=== PATIENT | female | born 1950 | race Caucasian/White ===

== ENCOUNTER 2018-05-30 15:55 | Observation (INO) | payer OTHER, MEDICAID ==
[~2018-05-30] VITALS: Ht 165.1 cm; Wt 72.7 kg
[2018-05-30 16:00] VITALS: Ht 165.1 cm; Wt 72.7 kg
--- NOTE | 2018-05-30 16:15 | NUR ---
EKG DONE BY ALLYSSA REED
--- NOTE | 2018-05-30 16:27 | NUR ---
MSE COMPLETED BY
--- NOTE | 2018-05-30 16:40 | NUR ---
NITRO PATCH APPLIED TO LEFT CHEST SEE EMAR
[2018-05-30 16:56] LABS: BASOPHIL % 0.2 % (0-2); PLATELET COUNT 136 x10^3mcL (130-400)
[2018-05-30 16:59] LABS: RED CELL DISTRIBUTION WIDTH 19.2 % (11.5-14.5)
[2018-05-30 17:10] LABS: CARBON DIOXIDE 25.8 mmol/L (21-32); CHLORIDE SERUM 102 mmol/L (98-107); CREATININE SERUM 0.6 mg/dL (0.6-1.0); GFR1 > 60 mL/min; GLUCOSE SERUM 119 mg/dL (74-106); POTASSIUM SERUM 3.4 mmol/L (3.5-5.1); SODIUM SERUM 134 mmol/L (136-145)
[2018-05-30 17:14] LABS: ALKALINE PHOSPHATASE 60 U/L (46-116); ALT/SGPT 24 U/L (14-59); AST/SGOT 17 U/L (15-37); TOTAL PROTEIN, SERUM 7.6 g/dL (6.4-8.2)
--- NOTE | 2018-05-30 18:18 | NUR ---
PT LYING COMFORTABLY IN BED. FAMILY MEMBER AT BEDSIDE. NO NEW ORDERS. WILL CONTINUE TO MONITOR.
[2018-05-30] MEDS ORDERED: METFORMIN HYDR500 M1 (18:58)
[2018-05-30] MEDS ORDERED: SIMVASTATIN (18:58)
[2018-05-30] MEDS ORDERED: LISINOPRIL2.5 MG (18:58)
[2018-05-30] MEDS ORDERED: SIMVASTATIN10 M1 (18:59)
--- NOTE | 2018-05-30 19:04 | NUR ---
REPORT GIVEN TO JESSICA AQUINO RESUMING CARE OF PT AT THIS TIME
--- NOTE | 2018-05-30 20:44 | NUR ---
PATIENT IS RESTING , DENIES ANY PAIN. REPORT WAS GIVEN TO ALVA. PATIENT TRANSPORTED TO ROOM 255B,
[2018-05-30 21:07] VITALS: BP 144/56
--- NOTE | 2018-05-30 21:10 | NUR ---
RECEIVED PT FROM ED VIA MAK. ORIENTED PT TO ROOM AND SURROUNDINGS. IV NOTED TO RH PATENT AND INTACT. TELE 27 PLACED ON PT READING NSR. INSTRUCTED PT ON THE USE OF CALL LIGHT FOR ASSISTANCE. ENDORSED PT TO PRIMARY NURSE KEVIN
--- NOTE | 2018-05-30 21:15 | NUR ---
RECEIVED PT FROM MILES MCKEON. PT AOX4. TELE #27, NSR. DENIES CP/PRESSURE. PULSES PALPABLE, NO EDEMA NOTED. LUNG SOUNDS CLEAR, ON RA. DENIES SOB/DIFFICULTY BREATHING. BOWEL SOUNDS ACTIVE. VOIDS FREELY. AMBULATORY. SKIN INTACT. IV TO R. HAND, INTACT AND PATENT. BED IN LOWEST POSITION. WILL CONTINUE TO MONITOR.
--- NOTE | 2018-05-31 00:20 | NUR ---
PT RESTING IN BED. RR EVEN AND UNLABORED. NO ACUTE DISTRESS NOTED. CALL LIGHT WITHIN REACH. BED IN LOWEST POSITION. WILL CONTINUE TO MONITOR.
--- NOTE | 2018-05-31 05:07 | NUR ---
DR. RADER NOTIFIED VIA [place] OF K 3.4.
[2018-05-31 05:10] VITALS: BP 124/49
--- NOTE | 2018-05-31 07:22 | NUR ---
REPORT TAKEN FROM WATER OPERATOR NURSE. PT RESTING COMFORTABLY AT THIS TIME, IN NO ACUTE DISTRESS. PT REPORTS LEFT SHOULDER PAIN AT THIS TIME. DECLINED PAIN MEDICATION AT THIS TIME. WILL CONTINUE WITH TREATMENT PALN.
[2018-05-31 08:08] LABS: BASOPHIL % 0.2 % (0-2); PLATELET COUNT 126 x10^3mcL (130-400); RED CELL DISTRIBUTION WIDTH 19.4 % (11.5-14.5)
[2018-05-31 08:12] LABS: CALCIUM 8.7 mg/dL (8.5-10.1); CARBON DIOXIDE 27.7 mmol/L (21-32); CHLORIDE SERUM 107 mmol/L (98-107); CREATININE SERUM 0.5 mg/dL (0.6-1.0); GFR1 > 60 mL/min; GLUCOSE SERUM 142 mg/dL (74-106); MAGNESIUM 1.9 mg/dL (1.8-2.4); POTASSIUM SERUM 3.4 mmol/L (3.5-5.1); SODIUM SERUM 143 mmol/L (136-145)
[2018-05-31 09:59] VITALS: BP 108/43
--- NOTE | 2018-05-31 10:39 | NUR ---
PT RESTING COMFORTABLY AT THIS TIME, IN NO ACUTE DISTRESS, FAMILY AT BEDSIDE. PT IS AMBULATORY WITH OUT ASSIST. PT TOLERATED MORNING TREATMENT WELL, WILL CONTINUE TO MONITOR.
[2018-05-31 13:00] VITALS: BP 132/46
[2018-05-31 16:15] VITALS: BP 125/53
--- NOTE | 2018-05-31 18:16 | NUR ---
PT A/O X 3 AT THIS TIME. RESTING COMFORTABLY IN BED. PT TOLERATED TREATMENT WELL DURING THE SHIFT. CN 1-12 WNL, PT DENIED HEADACHE. PT DENIED CHEST PAIN, ABD PAIN, N/V. PULSES WNL, SLIGHT EDEMA TO LEFT KNEE, BUT REPORTED MILD DISCOMFORT. PT REPORTED PAIN AT IV SITE, SITE FLUSHED AND WNL. BOWEL SOUNDS WNL, PT REPORTED BM TODAY. PT MADE AWARE OF TREATMENT PLAN FOR TONIGHT AND TOMORROW, VERBALIZED UNDERSTANDING. WILL CONTINUE TO MONITOR, AND HAND CARE OVER TO GROUP ART SUPERVISOR NURSE.
--- NOTE | 2018-05-31 18:51 | NUR ---
NURSING CO-SIGN THE DOCUMENTATION ENTERED BY THE RN ANIYAH HAS BEEN REVIEWED. REVIEWED/CO-SIGNED BY: Terrie Laughlin DOCUMENTATION DONE BY:SHAW PARMAR
--- NOTE | 2018-05-31 19:24 | NUR ---
RECEIVED PT FROM PREVIOUS SHIFT NURSE. PT AOX4. TELE #27, HR 62 SHOWING SR WITH BBB AND ELEVATED T WAVE. DENIES CP/PRESSURE. PULSES PALPABLE, NO EDEMA NOTED. LUNG SOUNDS CLEAR, ON RA. DENIES SOB/DIFFICULTY BREATHING. BOWEL SOUNDS ACTIVE. VOIDS FREELY. AMBULATORY. SKIN INTACT. IV TO R. HAND, INTACT AND PATENT. BED IN LOWEST POSITION. CALL LIGHT WITHIN REACH. WILL CONTINUE TO MONITOR.
[2018-05-31 21:14] VITALS: BP 117/43
--- NOTE | 2018-06-01 00:03 | NUR ---
PT RESTING IN BED. RR EVEN AND UNLABORED. NO ACUTE DISTRESS NOTED. CALL LIGHT WITHIN REACH. BED IN LOWEST POSITION. WILL CONTINUE TO MONITOR.
[2018-06-01 05:27] VITALS: BP 111/70
--- NOTE | 2018-06-01 07:15 | NUR ---
RCD REPORT FROM MILES BA. SHIFT ASSESSMENT PERFORMED AND DOCUMENTED. PATIENT AWAKE, ALERT, NO DISTRESS NOTED. DISCUSSED WITH ASSISTANCE OF MILES BA TO TRANSLATE CHIN[place], NEED FOR NO COFFEE AND LIGHT BREAKFAST IN PREPARATION FOR POSSIBLE STRESS TEST TODAY. PATIENT VERBALIZED UNDERSTAND OF ALL INSTRUCTIONS. PATIENT DENIES CHEST PAIN OR SHORTNESS OF BREATH. DENIES ANY OTHER PAIN. NO NEEDS AT THIS TIME. TELEL 27, SR WITH BBB, ELEVATED T WAVE, RATE IN 70s. WILL MONITOR.
[2018-06-01 07:55] VITALS: BP 131/44
--- NOTE | 2018-06-01 10:06 | NUR ---
MEDICATIONS GIVEN PER MAR EXCEPT METFORMIN HELD PRIOR TO NUCLEAR STRESS TEST PLANNED FOR 1300 TODAY. PATIENT ADVISED TO REFRAIN FROM EATING OR DRINKING AT THIS POINT IN PREPARATION FOR HER TEST. PATIENT VERBALIZED UNDERSTANDING OF INSTRUCTIONS. REPORTS NO NEEDS AT THIS TIME.
[2018-06-01 12:01] VITALS: BP 122/40
--- NOTE | 2018-06-01 13:10 | NUR ---
PATIENT PICKED UP BY NUCLEAR MEDICINE FOR STRESS TEST, TAKEN VIA WHEELCHAIR, NO DISTRESS NOTED.
--- NOTE | 2018-06-01 15:12 | NUR ---
PATIENT RETURNED TO UNIT FROM NUCLEAR MEDICINE, NO DISTRESS NOTED. PATIENT EDUCATED ON RADIOACTIVITY, KEEPING DISTANCE FROM FAMILY, PASSING RADIOACTIVITY IN URINE. PATIENT VERBALIZED UNDERSTANDING. PATIENT WITH NO NEEDS AT THIS TIME. WILL MONITOR.
[2018-06-01 17:00] VITALS: BP 141/41
[2018-06-01 17:28] VITALS: BP 141/41
--- NOTE | 2018-06-01 18:16 | NUR ---
PER CHARGE NURSE, KARON, PATIENT'S STRESS TEST NORMAL AND PATIENT OKAY FOR DISCHARGE. REVIEWED DISCHARGE INSTRUCTIONS IN DETAIL WITH PATIENT AND DAUGHTER WHO INTERPRETS PER PATIENT REQUEST. DISCUSSED CHEST PAIN CAUSES, [place], AVOIDING CONTACT WITH OTHERS FOR 24 HOURS. ANSWERED QUESTIONS. EDUCATION PROVIDED IN [place] AND [place] REGARDING DISCHARGE MEDICATION, OUTPATIENT FOLLOWUP, HEART ATTACK, WHEN TO SEEK EMERGENCY MEDICAL ATTENTION. IV TO RIGHT HAND REMOVED, SITE WITHOUT COMPLICATIONS. TELE 27 REMOVED AND RETURNED TO TELEMETRY. WILL ESCORT PATIENT VIA WHEELCHAIR WHEN DRESSED. PATIENT DENIES CHEST PAIN, IN NO ACUTE DISTRESS AT THIS TIME.
== END 2018-06-01 18:44 | disposition home or self-care (01) | DRG 313 ==
LOC: ED 15:55 → DU 19:47
PROVIDERS: Emergency Medicine; Internal Medicine Pulmonary Disease; ADMIT Internal Medicine Pulmonary Disease
DX: R07.89 Other chest pain (principal); I44.7 Left bundle-branch block, unspecified; E11.9 Type 2 diabetes mellitus without complications; I10 Essential (primary) hypertension; E78.5 Hyperlipidemia, unspecified; M81.0 Age-related osteoporosis without current pathological fracture
CPT/HCPCS: 82962; 83880; A9500; G0378; J1644; J2785; Q0092

== ENCOUNTER 2019-02-03 20:06 | Emergency (ER) | payer OTHER, MEDICAID ==
[~2019-02-03] VITALS: Ht 162.6 cm; Wt 67.6 kg
[~2019-02-03 20:06] MED LIST: LISINOPRIL2.5 MG; METFORMIN HYDR500 M1; SIMVASTATIN; SIMVASTATIN10 M1
[2019-02-03 20:17] VITALS: BP 161/50; Ht 162.6 cm; Wt 67.6 kg
== END 2019-02-03 22:01 | disposition home or self-care (01) ==
LOC: ED 20:06
DX: S83.92XA Sprain of unspecified site of left knee, initial encounter (principal); I10 Essential (primary) hypertension; E11.9 Type 2 diabetes mellitus without complications; E78.00 Pure hypercholesterolemia, unspecified; Z98.890 Other specified postprocedural states; X50.1XXA Overexertion from prolonged static or awkward postures, initial encounter; Y93.89 Activity, other specified; Y92.89 Other specified places as the place of occurrence of the external cause; Y99.8 Other external cause status